=== PATIENT | male | born 1980 | race Caucasian/White ===

== ENCOUNTER 2020-08-20 02:55 | Emergency (ER) | payer OTHER ==
[~2020-08-20] VITALS: Ht 177.8 cm; Wt 72.6 kg
[~2020-08-20 02:55] MED LIST: BACTRIM DS TAB1 EACH PO; CLONAZEPAM 0.50.5 M1 PO; HYDROCODON-ACE1 EAC7 PO; KEFLEX500 M1 PO; NORCO 5-325 TA1 EACH PO; TRUVADA1 EAC1
[2020-08-20 03:17] LABS: HEMATOCRIT 43.5 % (42.0-52.0); HEMOGLOBIN 14.7 gm/dL (14.0-18.0); MCHC 33.8 g/dL (28.0-37.0); MCV 94.7 fL (80.0-100.0); MPV 7.7 fl. (7.2-11.1); RBC 4.59 mil/uL (4.50-6.00); RDW-CV 13.7 % (10.5-14.5); WBC 5.2 thou/uL (4.0-11.0)
[2020-08-20 03:26] LABS: CALCIUM 8.6 mg/dL (8.5-10.1); CREATININE 0.7 mg/dL (0.6-1.3); POTASSIUM 3.3 mmol/L (3.5-5.1)
[2020-08-20 03:31] LABS: TOTAL BILIRUBIN 0.3 mg/dL (<0.1-1.0); TOTAL PROTEIN 7.4 g/dL (6.4-8.2)
[2020-08-20 03:46] LABS: URINE BILIRUBIN NEGATIVE (Negative); URINE BLOOD NEGATIVE (Negative); URINE CLARITY CLEAR; URINE COLOR YELLOW; URINE GLUCOSE-RANDOM TRACE (Negative); URINE KETONES NEGATIVE (Negative); URINE LEUKOCYTES-REFLEX NEGATIVE (Negative); URINE NITRITE-REFLEX NEGATIVE (Negative); URINE PROTEIN NEGATIVE (Negative); URINE SPECIFIC GRAVITY <= 1.005 (1.005-1.030); URINE UROBILINOGEN 0.2 E.U./dl (0.2-1.0)
[2020-08-20 04:36] LABS: AMP/METHAMP Negative (Negative); BARBITURATES Negative (Negative); BENZODIAZEPINES Negative (Negative); COCAINE Negative (Negative); METHADONE Negative (Negative); OPIATES POSITIVE (Negative); PCP Negative (Negative); THC POSITIVE (Negative)
[2020-08-20 05:10] VITALS: BP 118/84
== END 2020-08-20 05:11 | disposition home or self-care (01) ==
LOC: M.ERS 02:55
PROVIDERS: Personal Emergency Response Attendant
DX: F11.10 Opioid abuse, uncomplicated (principal); K70.10 Alcoholic hepatitis without ascites; F10.121 Alcohol abuse with intoxication delirium; R73.9 Hyperglycemia, unspecified; F17.210 Nicotine dependence, cigarettes, uncomplicated; Z88.5 Allergy status to narcotic agent; F43.10 Post-traumatic stress disorder, unspecified; F41.9 Anxiety disorder, unspecified; Y90.9 Presence of alcohol in blood, level not specified

== ENCOUNTER 2021-03-23 11:11 | Inpatient (IN) | payer OTHER ==
[~2021-03-23] VITALS: Ht 177.8 cm; Wt 74.8 kg
--- NOTE | ~2021-03-23 | PROC ---
[address] [address] PROCEDURE REPORT Name: AJ MARTINS Room: [address] IN M.R.#: [id number] Admission: 03/23/21 Attend Phys: Trey Heredia Discharge: 03/25/21 Date of : 80 Report #: [id number] THIS REPORT FOR: cc: FAM - No family physician/PCP FAM - No family physician/PCP [facility],Medical Records Staff ~ For GI report, please see the Provation report in Perceptive 7 content. By: 0659Medical Records Staff [facility] /JIAN
[2021-03-23 11:11] VITALS: BP 137/98
[2021-03-23] MEDS ORDERED: SYMTUZA 800-151 EACH PO (11:16)
[2021-03-23] MEDS ORDERED: DOXYCYCLINE 10100 M2 PO (11:16)
[2021-03-23] MEDS ORDERED: ONDANSETRON ODT4 MG PO (11:17)
[2021-03-23 11:33] LABS: ABSOLUTE LYMPHOCYTES 0.6 thou/uL (0.8-5.3); ABSOLUTE MONOCYTES 0.4 thou/uL (0.0-1.2); BASOPHILS 0.4 %; EOSINOPHILS 0.3 %; HEMATOCRIT 42.6 % (42.0-52.0); HEMOGLOBIN 14.6 gm/dL (14.0-18.0); LYMPHOCYTES 8.8 %; MCH 33.6 pg (26.0-34.0); MCHC 34.3 g/dL (28.0-37.0); MONOCYTES 5.5 %; MPV 8.9 fl. (7.2-11.1); NUCLEATED RBCS 0 /100WBC; PLATELET COUNT* 139 thou/uL (150-400); RBC 4.35 mil/uL (4.50-6.00); RDW-CV 14.6 % (10.5-14.5); WBC 7.1 thou/uL (4.0-11.0)
[2021-03-23 11:44] LABS: CREATININE 0.8 mg/dL (0.6-1.3)
[2021-03-23 11:45] LABS: APTT 27.1 Seconds (25.0-31.3); INR 1.1; PROTIME 11.8 Seconds (9.20-11.50)
[2021-03-23 11:46] LABS: POTASSIUM 2.9 mmol/L (3.5-5.1)
[2021-03-23 11:47] LABS: ALBUMIN 2.9 g/dL (3.4-5.0); TOTAL BILIRUBIN 1.3 mg/dL (<0.1-1.0); TOTAL PROTEIN 7.7 g/dL (6.4-8.2)
--- NOTE | 2021-03-23 12:54 | EKG ---
[place] [address] ELECTROCARDIOGRAM REPORT Name: AJ MARTINS Room: [place] [address] ADM IN [facility]#: [id number] Admission: 03/23/21 Attend Phys: Rob Farrell Discharge: Date of : 80 Date of Service: 03/23/21 1227 Report #: [id number] THIS REPORT FOR: //name// [facility] ED Test Date: 2021-03-23 Test Time: 12:27:25 Pat Name: AJ MARTINS Department: Room: [facility] Gender: M Anode Builder: JIM : 1980 Requested By: Mike Carbone Order Number: [id number] MD: Chris Sexton Measurements Intervals [place] Rate: 88 P: 38 [place]: 136 QRS: 17 QRSD: 91 T: 33 QT: 376 QTc: 455 Interpretive Statements Sinus rhythm No previous ECG available for comparison Electronically Signed On 03-23-2021 12:54:18 CDT by Chris Sexton [email or web address] <ELECTRONICALLY SIGNED> By: Chris Sexton MD, [facility] 03/23/21 1254 1227 1227 Chris Sexton MD, [facility] /EPI
[2021-03-23 13:14] LABS: URINE BLOOD NEGATIVE (Negative); URINE CLARITY CLEAR; URINE COLOR ORANGE; URINE GLUCOSE-RANDOM TRACE (Negative); URINE KETONES 1+ (Negative); URINE LEUKOCYTES-REFLEX NEGATIVE (Negative); URINE PROTEIN 1+ (Negative)
[2021-03-23 13:16] LABS: URINE BILIRUBIN 3+ (Negative); URINE NITRITE-REFLEX POSITIVE (Negative)
[2021-03-23 13:18] LABS: ICTOTEST (BILI CONFIRMATORY) Negative (Negative)
[2021-03-23 13:25] LABS: BACTERIA-REFLEX 1-9 Few /HPF (None Seen); CASTS None Seen /LPF (None Seen); CRYSTALS None Seen /LPF (None Seen); MUCUS >6 Heavy strn/LPF (None Seen); SQUAMOUS 0-3 Few /LPF (0-3); URINE RBC None Seen /HPF (0-2); URINE WBC-REFLEX 0-5 Rare /HPF (0-5)
[2021-03-23 13:50] VITALS: BP 109/73
[2021-03-23 14:30] VITALS: BP 102/73
--- NOTE | 2021-03-23 18:39 | NUR ---
[facility] AT 1415. PT IS ALERT AND ORIENTED. PT CAME FROM ED. ASSESSMENT DONE AND CHARTED. PT HAD BANANA BAG STARTED IN THE ED AND FINISH HERE. PT IS CURRENTLY ON D5 0.9NS WITH 20MEQ INFUSING AT 100ML/HR. PT HAD PANTOPROZOLE STRIP THAT WAS STARTED IN THE ED AND FINISH HERE. A PAGE IS SEND OUT TO DR. TURCIOS TO CONTINUE PANTOPROZOLE STRIP, NO CALL BACK YET. WILL CONTINUE TO AWAIT THE CALL BACK FROM DR. TURCIOS. AND CONTINUE TO PROVIDE CARE FOR PATIENT.
[2021-03-23 20:00] VITALS: BP 106/74
[2021-03-24 00:30] VITALS: BP 128/84
[2021-03-24 04:21] LABS: ABSOLUTE LYMPHOCYTES 0.5 thou/uL (0.8-5.3); ABSOLUTE MONOCYTES 0.3 thou/uL (0.0-1.2); ABSOLUTE NEUTROPHILS 2.7 thou/uL (1.6-8.1); BASOPHILS 0.5 %; EOSINOPHILS 0.3 %; HEMATOCRIT 39.9 % (42.0-52.0); HEMOGLOBIN 13.3 gm/dL (14.0-18.0); LYMPHOCYTES 14.2 %; MCH 32.6 pg (26.0-34.0); MCHC 33.2 g/dL (28.0-37.0); MCV 98.1 fL (80.0-100.0); MONOCYTES 7.8 %; MPV 9.7 fl. (7.2-11.1); NUCLEATED RBCS 0 /100WBC; PLATELET COUNT* 102 thou/uL (150-400); POLYS 77.2 %; RBC 4.07 mil/uL (4.50-6.00); RDW-CV 14.4 % (10.5-14.5); WBC 3.5 thou/uL (4.0-11.0)
[2021-03-24 04:37] VITALS: BP 116/69
[2021-03-24 04:43] LABS: ALBUMIN 2.5 g/dL (3.4-5.0); CALCIUM 7.3 mg/dL (8.5-10.1); CREATININE 0.7 mg/dL (0.6-1.3); POTASSIUM 3.5 mmol/L (3.5-5.1); TOTAL BILIRUBIN 1.4 mg/dL (<0.1-1.0); TOTAL PROTEIN 6.5 g/dL (6.4-8.2)
--- NOTE | 2021-03-24 05:58 | NUR ---
PT ALERT ORIENTED. ETOH WD. CLONAZIPAM AND ATIVAN GIVEN ONCE EACH. PT NPO AT NM FOR EGD. PAIN MEDICATION CHG TO IVP.
[2021-03-24 08:00] VITALS: BP 124/76
[2021-03-24 12:00] VITALS: BP 140/71
[2021-03-24 17:46] VITALS: BP 133/69
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
--- NOTE | 2021-03-24 19:50 | NUR ---
ASSUMED PT CARE AT 0730. PT IS A&OX4. PT SLEEPING OFTEN BUT RESPONDS READILY WHEN SPOKEN TO. ASSESSMENT COMPLETED. MEDICATIONS ADMINISTERED ORDERED. PT HAD EGD TODAY.PRN ANXIETY MED AND PAIN MED ADMINISTERED AND EFFECTIVE.
[2021-03-24 20:00] VITALS: BP 116/77
[2021-03-25 00:40] VITALS: BP 152/72
[2021-03-25 05:45] VITALS: BP 148/72
--- NOTE | 2021-03-25 07:19 | NUR ---
ASSUMED PT CARE AT APPROX 1930. PT IS AWAKE AND ORIENTED X4. PT IS NOT IN DISTRESS, NO DESATURATIONS NOTED ON ROOM AIR. PT IS ANXIOUS AT TIMES, ANXIETY MEDS GIVEN WITH RELIEF. PT IS C/O BACK AMD NECK PAIN RELEIVED BY PAIN MEDS GIVEN PER MAR. NO ACUTE CHANGES THIS SHIFT. CALL LIGHT WITHIN REACH. HOURLY ROUNDING DONE FOR PT SAFETY HIGH FALL PREFCAUTIONS IN PLACE.
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
[2021-03-25] MEDS ORDERED: PROTONIX40 M2 PO (10:56)
[2021-03-25 11:35] VITALS: BP 148/72
[2021-03-26 07:08] LABS: HEPATITIS B SURFACE AG Negative (Negative)
== END 2021-03-25 13:22 | disposition home or self-care (01) | DRG 368 ==
LOC: M.ERS 11:11 → M.TBA-ER 11:52 → M.2W 11:52
PROVIDERS: Family Medicine; Internal Medicine Gastroenterology; ADMIT Internal Medicine; ATTEND Internal Medicine
PROC: 0DJ08ZZ Inspection of Upper Intestinal Tract, Via Natural or Artificial Opening Endoscopic (ICD-10-PCS; principal; 2021-03-24)
DX: K21.01 Gastro-esophageal reflux disease with esophagitis, with bleeding (principal); J69.0 Pneumonitis due to inhalation of food and vomit; F10.139 Alcohol abuse with withdrawal, unspecified; E87.3 Alkalosis; K76.6 Portal hypertension; F41.9 Anxiety disorder, unspecified; E87.6 Hypokalemia; F43.10 Post-traumatic stress disorder, unspecified; D69.6 Thrombocytopenia, unspecified; D72.819 Decreased white blood cell count, unspecified; F17.210 Nicotine dependence, cigarettes, uncomplicated; E87.8 Other disorders of electrolyte and fluid balance, not elsewhere classified; M48.00 Spinal stenosis, site unspecified; M19.90 Unspecified osteoarthritis, unspecified site; K31.89 Other diseases of stomach and duodenum; Z20.822 Contact with and (suspected) exposure to COVID-19; K44.9 Diaphragmatic hernia without obstruction or gangrene; Z88.6 Allergy status to analgesic agent; Z71.41 Alcohol abuse counseling and surveillance of alcoholic

== ENCOUNTER 2021-06-05 16:33 | Inpatient (IN) | payer OTHER ==
[~2021-06-05] VITALS: Ht 177.8 cm; Wt 84.5 kg
[~2021-06-05 16:33] MED LIST changes: +DOXYCYCLINE 10100 M2 PO; +ONDANSETRON ODT4 MG PO; +PROTONIX40 M2 PO; +SYMTUZA 800-151 EACH PO
[2021-06-05 16:44] VITALS: BP 135/84
[2021-06-05 17:11] LABS: HEMATOCRIT 37.4 % (42.0-52.0); HEMOGLOBIN 13.1 gm/dL (14.0-18.0); MCH 34.4 pg (26.0-34.0); MCHC 34.9 g/dL (28.0-37.0); MCV 98.4 fL (80.0-100.0); MPV 9.7 fl. (7.2-11.1); NUCLEATED RBCS 0 /100WBC; PLATELET COUNT* 179 thou/uL (150-400); RDW-CV 17.4 % (10.5-14.5)
[2021-06-05 17:24] LABS: INR 1.6; PROTIME 16.5 Seconds (9.20-11.50)
[2021-06-05 17:25] LABS: CALCIUM 8.5 mg/dL (8.5-10.1); CREATININE 9.7 mg/dL (0.6-1.3); POTASSIUM 3.6 mmol/L (3.5-5.1)
[2021-06-05 17:38] LABS: ALBUMIN 1.8 g/dL (3.4-5.0); TOTAL BILIRUBIN 26.9 mg/dL (<0.1-1.0); TOTAL PROTEIN 7.6 g/dL (6.4-8.2)
[2021-06-05 18:11] LABS: ABSOLUTE EOSINOPHILS 0.2 thou/uL (0.0-0.7); ABSOLUTE LYMPHOCYTES 1.2 thou/uL (0.8-5.3); ABSOLUTE MONOCYTES 1.5 thou/uL (0.0-1.2); ABSOLUTE NEUTROPHILS 14.1 thou/uL (1.6-8.1); HYPOCHROMASIA 1+; MACROCYTES 1+; PLATELET ESTIMATE ADEQUATE
[2021-06-05 18:12] LABS: LARGE PLATELETS OCCASIONAL
[2021-06-05 22:10] VITALS: BP 134/78
[2021-06-05 23:52] LABS: URINE BLOOD NEGATIVE (Negative); URINE CLARITY CLEAR; URINE COLOR BROWN; URINE GLUCOSE-RANDOM TRACE (Negative); URINE KETONES TRACE (Negative); URINE LEUKOCYTES-REFLEX NEGATIVE (Negative); URINE PROTEIN TRACE (Negative); URINE UROBILINOGEN >= 8.0 E.U./dl (0.2-1.0)
[2021-06-05 23:58] LABS: URINE BILIRUBIN 3+ (Negative); URINE NITRITE-REFLEX POSITIVE (Negative)
[2021-06-06] VITALS (7 sets, daily range): BP systolic 118–137; BP diastolic 77–95
[2021-06-06 00:18] LABS: AMORPHOUS URATES Moderate /LPF (None Seen); BACTERIA-REFLEX >30 Many /HPF (None Seen); CELLULAR CASTS 0-3 Few /LPF (None Seen); COARSE GRANULAR CASTS 0-3 Few /LPF (None Seen); FINE GRANULAR CASTS 0-3 Few /LPF (None Seen); MUCUS 4-6 Moderate strn/LPF (None Seen); SQUAMOUS 4-10 Moderate /LPF (0-3); TRANSITIONAL EPITHEL CELL 0-3 Few /LPF (None Seen); URINE RBC 3-10 Few /HPF (0-2); URINE WBC-REFLEX 6-15 Few /HPF (0-5)
[2021-06-06 08:13] LABS: CALCIUM 7.9 mg/dL (8.5-10.1); POTASSIUM 3.6 mmol/L (3.5-5.1)
[2021-06-06 08:18] LABS: ALBUMIN 1.5 g/dL (3.4-5.0); TOTAL BILIRUBIN 22.6 mg/dL (<0.1-1.0); TOTAL PROTEIN 6.5 g/dL (6.4-8.2)
[2021-06-06 11:39] LABS: BF RBC <1000 /mm3; TOTAL CELL COUNT 50 /mm3
--- NOTE | 2021-06-06 12:20 | EKG ---
[place] [address] ELECTROCARDIOGRAM REPORT Name: LAKSHMIAJ Room: [place] [address] ADM IN [facility]#: [id number] Admission: 06/05/21 Attend Phys: Rob Farrell Discharge: Date of : 80 Date of Service: 06/05/21 1728 Report #: [id number] THIS REPORT FOR: //name// [facility] ED Test Date: 2021-06-05 Test Time: 17:28:51 Pat Name: AJ MARTINS Department: Room: [facility] Gender: M Residence Life Director: JOANNE : 1980 Requested By: Mike Carbone Order Number: [id number] MD: Chris Sexton Measurements Intervals [place] Rate: 91 P: 44 VT: 156 QRS: 1 QRSD: 95 T: 30 QT: 384 QTc: 473 Interpretive Statements Sinus rhythm with premature ventricular contractions Compared to ECG 03/23/2021 12:27:25 Ventricular premature complex(es) now present Electronically Signed On 06-06-2021 12:20:28 CATERING COOK by Chris Sexton [email or web address] <ELECTRONICALLY SIGNED> By: Chris Sexton MD, FACC 06/06/21 1220 1728 1728 Chris Sexton MD, FAC /EPI
[2021-06-06 12:24] LABS: TOTAL VOLUME 7250 ml
[2021-06-06 13:46] LABS: BF POLYS 47 %
[2021-06-06 13:52] LABS: BF LYMPHOCYTES 0 %; BF MONOCYTES 0 %
[2021-06-06 13:53] LABS: CLARITY CLEAR; SOURCE PARACENTESIS
--- NOTE | 2021-06-06 16:02 | CON ---
[address] [address] CONSULTATION Name: AJ MARTINS Room: [address] IN M.R.#: [id number] Admission: 06/05/21 Attend Phys: Trey Heredia Discharge: Date of : 80 Report #: [id number] THIS REPORT FOR: cc: [facility] - Clinic physician unknown [facility] - Clinic physician unknown Washington Conley MD ~ DATE OF CONSULTATION: 06/06/2021 Please note at the time of this dictation, the patient was seen and physically examined by myself. REASON FOR CONSULTATION: Jaundice, severe ascites and cirrhosis. HISTORY OF PRESENT ILLNESS: This is a 40-year-old male who has a longstanding history of alcohol abuse. The patient was last seen in March of this year in which he had been drinking a 6-pack daily. He states since his dismissal, he has only had one 6-pack that was once and that was about 6 weeks ago. He has not been able to get into any rehabilitation as of yet. The patient states that he denies any difficulty swallowing. He has had some nausea over the last couple of days. He states over the last couple of weeks, his is abdomen has gradually been getting bigger and bigger to the point that the last two days, he has not really had an appetite. He states his bowels are moving. He denies any bright red blood or any black in his stools. He does state that he has been using ibuprofen at home at least 800 mg every day and as mentioned earlier, he has been eating and drinking up until the last few days prior to him being admitted. The patient states he did not notice how yellow he was until he came to the hospital. The patient was last seen by us on 03/24 in which he underwent an EGD that showed grade D esophagitis. He had a 2 cm hiatal hernia, portal hypertensive gastropathy. At that particular time, his weight was 165 pounds and upon admission this time, his weight is 180 and he is up 15 pounds. He has no peripheral swelling noted at this time. On admission, his bilirubin was noted to be 27, in some acute kidney injury as well. ALLERGIES: MORPHINE. MEDICATIONS FROM HOME: He has been taking his clonazepam, ibuprofen 800 daily, hydrocodone/acetaminophen, Symtuza and ondansetron. PAST MEDICAL HISTORY: HIV and on HAART therapy, alcohol dependency in the past, history of cirrhosis, history of alcoholic hepatitis in the past, anxiety, PTSD and opioid use. PAST SURGICAL HISTORY: None. FAMILY HISTORY: Negative for [place] [address] CONSULTATION Name: AJ MARTINS Room: [address] IN [facility]#: [id number] Admission: 06/05/21 Attend Phys: Trey Heredia Discharge: Date of : 80 Report #: [id number] SOCIAL HISTORY: He smokes marijuana regularly, smokes on a daily basis. Last reports a 6-pack of alcohol 6 weeks ago. REVIEW OF SYSTEMS: Twelve-point review of systems is essentially negative except what is mentioned in the HPI. PHYSICAL EXAMINATION: VITAL SIGNS: Temperature 36.3, pulse 91, respirations are 23, blood pressure 136/95. HEART: Regular rate and rhythm. LUNGS: Diminished, but clear. ABDOMEN: Very distended and firm. Positive bowel sounds. No peripheral edema noted. SKIN: The patient is very jaundiced. Eyes icterus. LABORATORY DATA: Sodium 127, potassium 3.6. BUN is 129, creatinine is 9. GFR is 7. His total bilirubin on admission was 26.9, he is 22.6, alkaline phosphatase is 110, ALT is 75, AST is 107. Albumin 1.5, total protein 6.5. PT is 16.5, INR is 1.6. His lipase is 94. Hemoglobin is 13.1, white count is 17 and platelets are 179. The patient currently is a Child-Omer C with a score of 11. Discriminant function of 43 and a MELD of 37. IMAGING: His CT shows fatty liver with severe ascites. Spleen is very prominent, questionable possible diffuse colonic thickening and gallstones have been noted. IMPRESSION: 1. Jaundice/alcoholic hepatitis. 2. Ascites, severe. 3. Cirrhosis secondary to alcohol abuse history and fatty liver. 4. NSAID use daily, ibuprofen 800. 5. Leukocytosis. 6. Hyponatremia. 7. Acute renal failure. 8. Human immunodeficiency virus. PLAN: 1. Ultrasound paracentesis to replace 2 grams of albumin, if greater than 5 liters is removed. 2. Labs on the paracentesis fluid, ascitic fluid, cell count, SKIAGRAPHER, total protein and albumin. 3. Labs, AFP, CBC, CMP, PT/INR in the a.m. 4[place] [address] CONSULTATION Name: AJ MARTINS Room: [place] [address] ADM IN .R.#: [id number] Admission: 06/05/21 Attend Phys: Trey Heredia Discharge: Date of : 80 Report #: [id number] 5. Timing of the EGD to be determined for rechecking of his grade D esophagitis from March. 6. Prednisolone 40 mg daily for the next 28 days and then we will start a taper. 7. Further recommendations to be made after all of the above has been noted. Thank you for allowing us to participate in this patient's care. Please do not hesitate to call with any questions regarding this consult. <ELECTRONICALLY SIGNED> By: Washington Conley MD 06/06/21 1602 0900 0940Washington Conley MD /nt
[2021-06-07 01:00] VITALS: BP 130/76
[2021-06-07 05:27] VITALS: BP 126/74
[2021-06-07] MEDS ORDERED: RAYOS5 MG PO (06:37)
[2021-06-07 08:00] VITALS: BP 132/73
[2021-06-07 08:56] LABS: HEMATOCRIT 31.4 % (42.0-52.0); MCHC 34.5 g/dL (28.0-37.0); MCV 98.6 fL (80.0-100.0); MPV 9.2 fl. (7.2-11.1); RBC 3.19 mil/uL (4.50-6.00); RDW-CV 17.5 % (10.5-14.5); WBC 14.3 thou/uL (4.0-11.0)
[2021-06-07 09:02] LABS: HEMOGLOBIN 10.8 gm/dL (14.0-18.0)
[2021-06-07 09:15] LABS: ALBUMIN 2.1 g/dL (3.4-5.0); CALCIUM 8.4 mg/dL (8.5-10.1); CREATININE 8.2 mg/dL (0.6-1.3); MAGNESIUM 2.1 mg/dL (1.8-2.4); POTASSIUM 3.5 mmol/L (3.5-5.1); TOTAL BILIRUBIN 23.2 mg/dL (<0.1-1.0); TOTAL PROTEIN 6.1 g/dL (6.4-8.2)
[2021-06-07 10:28] LABS: INR 1.6
[2021-06-07 12:09] VITALS: BP 114/73
[2021-06-07 20:00] VITALS: BP 118/86
[2021-06-08] VITALS: BP 122/80
[2021-06-08 05:27] VITALS: BP 128/79
[2021-06-08 07:35] LABS: ABSOLUTE LYMPHOCYTES 0.3 thou/uL (0.8-5.3); ABSOLUTE MONOCYTES 0.2 thou/uL (0.0-1.2); ABSOLUTE NEUTROPHILS 9.8 thou/uL (1.6-8.1); BASOPHILS 0.1 %; HEMATOCRIT 31.8 % (42.0-52.0); LYMPHOCYTES 2.5 %; MCH 34.3 pg (26.0-34.0); MCHC 34.5 g/dL (28.0-37.0); MCV 99.5 fL (80.0-100.0); MPV 9.1 fl. (7.2-11.1); NUCLEATED RBCS 0 /100WBC; PLATELET COUNT* 117 thou/uL (150-400); POLYS 95.4 %; RDW-CV 16.8 % (10.5-14.5); WBC 10.3 thou/uL (4.0-11.0)
[2021-06-08 07:44] LABS: CALCIUM 8.7 mg/dL (8.5-10.1); CREATININE 7.5 mg/dL (0.6-1.3); PHOSPHORUS* 6.2 mg/dL (2.5-4.9); POTASSIUM 3.6 mmol/L (3.5-5.1)
[2021-06-08 07:45] LABS: INR 1.7; PROTIME 16.7 Seconds (9.20-11.50)
[2021-06-08 07:59] LABS: CALCIUM 8.5 mg/dL (8.5-10.1); CREATININE 7.5 mg/dL (0.6-1.3); POTASSIUM 3.6 mmol/L (3.5-5.1); TOTAL BILIRUBIN 20.9 mg/dL (<0.1-1.0); TOTAL PROTEIN 5.9 g/dL (6.4-8.2)
[2021-06-08 08:00] VITALS: BP 121/85
[2021-06-08 13:41] VITALS: BP 126/88
[2021-06-08 17:26] VITALS: BP 147/87
[2021-06-08 20:00] VITALS: BP 139/89
[2021-06-09] VITALS: BP 139/93
[2021-06-09 04:00] VITALS: BP 126/84
--- NOTE | 2021-06-09 07:31 | CON ---
[address] [address] CONSULTATION Name: LAKSHMIAJ Room: [address] IN M.R.#: [id number] Admission: 06/05/21 Attend Phys: Trey Heredia Discharge: Date of : 80 Report #: [id number] THIS REPORT FOR: cc: [facility] - Clinic physician unknown [facility] - Clinic physician unknown Nohemi Martínez MD ~ DATE OF CONSULTATION: 06/06/2021 CONSULTING PHYSICIAN: Dr. Farrell. REASON FOR NEPHROLOGY CONSULTATION: Acute kidney injury. REASON FOR ADMISSION: Abdominal pain. HISTORY OF PRESENT ILLNESS: This is a 40-year-old male with history of alcohol dependence in the past. No recent use at least in the last 6 months, HIV, is on HAART therapy, history of cirrhosis with history of hepatitis in the past, came in with increasing abdominal pain as well as abdominal distention as well as jaundice. He was found to have a creatinine of 9.7. His baseline was 0.7 back on 03/24 of this year. His abdomen is also extremely distended and there is a large amount of ascites on his abdominal imaging. With IV fluids, his creatinine has come down to 9.0, but he is really uncomfortable with his abdominal distention. He does use ibuprofen at home. He reports using 500 mg every day. He reports eating and drinking okay in the last few days, but has been having a lot of nausea. He states for the last couple of weeks, his abdomen has been distended. No history of any kidney stones, no history of any previous kidney problems. There is no evidence of any hydronephrosis on abdominal imaging. He also has marked hyperbilirubinemia with transaminitis. His total bilirubin is 27. ALLERGIES: MORPHINE. REVIEW OF SYSTEMS: Which is as mentioned in history of present illness and otherwise 10-point review of systems are negative. PAST MEDICAL HISTORY: Includes HIV, on HAART therapy, alcohol dependence in the past, has not used it in the last 6 months, uses marijuana, history of cirrhosis, history of hepatitis in the past, anxiety, PTSD, opiate use. PAST SURGICAL HISTORY: He does not report any. FAMILY HISTORY: No history of any kidney disease in the past. SOCIAL HISTORY: He does smoke every day. Uses marijuana. [place] [address] CONSULTATION Name: AJ MARTINS Room: [address]#: [id number] Admission: 06/05/21 Attend Phys: Trey Heredia Discharge: Date of : 80 Report #: [id number] HOME MEDICATIONS: Clonazepam, ibuprofen one tablet a day, hydrocodone/acetaminophen, Symtuza and ondansetron. PHYSICAL EXAMINATION: VITAL SIGNS: Blood pressure is 136/95. He is afebrile, pulse rate 91, respiratory rate 23, and pulse ox is 94% on room air. GENERAL: The patient is awake and alert and oriented x3, looks like he is in mild distress because of abdominal discomfort. HEAD AND EYES: Atraumatic, normocephalic. Conjunctivae has jaundice. Skin is also jaundiced. Mucous membranes are dry. NECK: No JVD. CHEST: Bilaterally clear to auscultation posteriorly. No crackles or wheezing. CARDIOVASCULAR: S1, S2 normal. No murmurs. ABDOMEN: Mildly distended, tight and bowel sounds are decreased, nontender. LOWER EXTREMITIES: There is no lower extremity edema. NEUROLOGIC: Neurologic function is grossly intact. PSYCHIATRIC: Mood and affect seem to be normal. LABORATORY DATA: WBC 17.0, hemoglobin 13.1, platelet count is 179. Sodium is 127 this morning, potassium is 3.8, chloride is 86, BUN is 129, creatinine is 9.0 which is better from 9.7 when he first came in. Total bilirubin is 27. Other labs are reviewed. IMAGING: Abdominal pelvic CT scan was reviewed. ASSESSMENT: 1. Acute kidney injury, presents with a creatinine of 9.7 with a baseline creatinine of 0.7 in March of this year. Acute kidney injury in setting of volume depletion, use of NSAID use. He also has marked hyperbilirubinemia. Bilirubin cast nephropathy cannot be ruled out, hepatorenal syndrome also remains a possibility. He also takes tenofovir as part of his HAART regimen, which has been associated with acute tubular necrosis. So far, labs are getting better with fluids. UA reviewed, shows evidence of some granular cast, is a contaminated specimen. 3-10 RBCs per high power field with trace protein. Renal ultrasound does not show any hydronephrosis. Another possibility is of renal venous congestion because of increased intraabdominal pressure. 2. Marked ascites in the setting of known cirrhosis, history of alcohol use in the past. 3. Marked hyperbilirubinemia, transaminitis. We will defer to primary team and GI also has been consulted. 4. Non-gap metabolic acidosis with metabolic alkalosis. 5. Hyponatremia in the setting of volume depletion and impaired renal function. 6. Marijuana use. [address] [address] CONSULTATION Name: AJ MARTINS Room: [address] IN [facility]#: [id number] Admission: 06/05/21 Attend Phys: Trey Heredia Discharge: Date of : 80 Report #: [id number] 7. Leukocytosis, etiology of infection not clear. 8. Post traumatic stress disorder as per primary team. 9. History of human immunodeficiency virus, on HAART regimen, currently on hold because of renal dysfunction. 10. Bowel wall thickening, will defer to GI. PLAN: 1. From nephrology standpoint, continue IV fluids. We will do normal saline at 100 mL an hour, follow sodium closely. 2. So far, kidney function is getting better with fluids. There is no need for dialysis. 3. I would recommend planning for paracentesis if more than 5 liters removed, use IV albumin. 4. Strict I's and O's. 5. Follow up with GI recommendations. 6. Avoid nephrotoxic agents, NSAIDs, avoid IV contrast, try to keep his MAP around 65-70. 7. Agree with holding off on HAART therapy right now. Thank you for this consultation. We will continue to follow with you. Discussed with the patient and nurse in detail. <ELECTRONICALLY SIGNED> By: Nohemi Martínez MD 06/09/21 0731 0801 [id number] Martínez MD /nt
[2021-06-09 08:09] LABS: HEMATOCRIT 33.3 % (42.0-52.0); HEMOGLOBIN 11.5 gm/dL (14.0-18.0); MCH 34.1 pg (26.0-34.0); MCHC 34.5 g/dL (28.0-37.0); MCV 98.9 fL (80.0-100.0); MPV 9.6 fl. (7.2-11.1); NUCLEATED RBCS 0 /100WBC; PLATELET COUNT* 138 thou/uL (150-400); RBC 3.37 mil/uL (4.50-6.00); WBC 17.7 thou/uL (4.0-11.0)
[2021-06-09 08:23] LABS: CALCIUM 8.4 mg/dL (8.5-10.1); POTASSIUM 3.4 mmol/L (3.5-5.1); TOTAL PROTEIN 6.1 g/dL (6.4-8.2)
[2021-06-09 08:24] LABS: CREATININE 6.5 mg/dL (0.6-1.3)
[2021-06-09 08:32] VITALS: BP 135/94
[2021-06-09 09:27] LABS: ABSOLUTE LYMPHOCYTES 0.7 thou/uL (0.8-5.3); ABSOLUTE MONOCYTES 0.5 thou/uL (0.0-1.2); ABSOLUTE NEUTROPHILS 16.5 thou/uL (1.6-8.1); PLATELET ESTIMATE ADEQUATE
[2021-06-09 12:00] VITALS: BP 141/86
[2021-06-09 15:57] VITALS: BP 122/90
[2021-06-09 19:50] VITALS: BP 138/84
[2021-06-10] VITALS: BP 133/91
[2021-06-10 04:00] VITALS: BP 150/79
[2021-06-10 05:30] LABS: INR 1.6; PROTIME 15.9 Seconds (9.20-11.50)
[2021-06-10 05:35] LABS: CALCIUM 8.3 mg/dL (8.5-10.1); CREATININE 6.5 mg/dL (0.6-1.3); POTASSIUM 3.4 mmol/L (3.5-5.1); TOTAL BILIRUBIN 14.3 mg/dL (<0.1-1.0); TOTAL PROTEIN 6.2 g/dL (6.4-8.2)
[2021-06-10 07:08] LABS: ANISOCYTOSIS 1+; GIANT PLATELETS FEW; PLATELET ESTIMATE ADEQUATE
[2021-06-10 07:34] LABS: ABSOLUTE EOSINOPHILS 0.1 thou/uL (0.0-0.7); BASOPHILS 0.1 %; HEMATOCRIT 33.3 % (42.0-52.0); HEMOGLOBIN 11.2 gm/dL (14.0-18.0); MCH 33.8 pg (26.0-34.0); MCHC 33.6 g/dL (28.0-37.0); MCV 100.7 fL (80.0-100.0); MPV 9.5 fl. (7.2-11.1); NUCLEATED RBCS 0 /100WBC; PLATELET COUNT* 128 thou/uL (150-400); RBC 3.31 mil/uL (4.50-6.00); RDW-CV 17.6 % (10.5-14.5); WBC 16.6 thou/uL (4.0-11.0)
[2021-06-10 07:38] LABS: ABSOLUTE LYMPHOCYTES 0.6 thou/uL (0.8-5.3); ABSOLUTE MONOCYTES 1.1 thou/uL (0.0-1.2); ABSOLUTE NEUTROPHILS 14.8 thou/uL (1.6-8.1)
[2021-06-10 08:00] VITALS: BP 127/91
[2021-06-10 09:07] LABS: BODY FLUID PROTEIN 0.7 g/dL (())
[2021-06-10 12:30] VITALS: BP 125/92
[2021-06-10 16:00] VITALS: BP 119/80
[2021-06-10 21:20] VITALS: BP 130/89
[2021-06-11] VITALS: BP 117/68
[2021-06-11 04:00] VITALS: BP 160/76
[2021-06-11 04:32] LABS: ALBUMIN 1.9 g/dL (3.4-5.0); CALCIUM 8.2 mg/dL (8.5-10.1); CREATININE 5.6 mg/dL (0.6-1.3); POTASSIUM 3.8 mmol/L (3.5-5.1); TOTAL BILIRUBIN 12.5 mg/dL (<0.1-1.0)
[2021-06-11 08:00] VITALS: BP 136/73
[2021-06-11 11:38] VITALS: BP 123/75
[2021-06-11 16:00] VITALS: BP 120/75
[2021-06-11 19:55] VITALS: BP 121/83
[2021-06-12 00:43] VITALS: BP 124/87
[2021-06-12 03:48] VITALS: BP 125/69
[2021-06-12 05:03] LABS: ABSOLUTE BASOPHILS 0.1 thou/uL (0.0-0.2); ABSOLUTE LYMPHOCYTES 0.4 thou/uL (0.8-5.3); ABSOLUTE MONOCYTES 0.7 thou/uL (0.0-1.2); ABSOLUTE NEUTROPHILS 13.7 thou/uL (1.6-8.1); BASOPHILS 0.5 %; EOSINOPHILS 0.1 %; HEMOGLOBIN 10.5 gm/dL (14.0-18.0); LYMPHOCYTES 2.7 %; MCH 34.5 pg (26.0-34.0); MCHC 34.9 g/dL (28.0-37.0); MCV 99.1 fL (80.0-100.0); MONOCYTES 4.6 %; MPV 9.9 fl. (7.2-11.1); NUCLEATED RBCS 0 /100WBC; PLATELET COUNT* 96 thou/uL (150-400); POLYS 92.1 %; RBC 3.03 mil/uL (4.50-6.00); WBC 14.9 thou/uL (4.0-11.0)
[2021-06-12 05:51] LABS: ALKALINE PHOSPHATASE 101 U/L (46-116); ANION GAP 13 mmol/L (7-16); CALCIUM 8.2 mg/dL (8.5-10.1); CHLORIDE 98 mmol/L (98-107); POTASSIUM 3.7 mmol/L (3.5-5.1); SGOT 69 U/L (15-37); SODIUM 129 mmol/L (136-145); TOTAL PROTEIN 5.8 g/dL (6.4-8.2)
[2021-06-12 05:53] LABS: ALBUMIN 1.9 g/dL (3.4-5.0); BUN 127 mg/dL (7-18); CO2 18 mmol/L (21-32); CREATININE 5.1 mg/dL (0.6-1.3); GLUCOSE 128 mg/dL (70-99)
[2021-06-12 05:58] LABS: SGPT < 5 U/L (30-65)
[2021-06-12 06:27] LABS: INR 1.5
[2021-06-12 08:00] VITALS: BP 110/78
[2021-06-12] MEDS ORDERED: ANTACID650 MG PO (12:03)
[2021-06-12] MEDS ORDERED: ORAPRED15 MG/5 ML PO (12:03)
[2021-06-12 12:08] VITALS: BP 117/67
[2021-06-12 13:54] VITALS: BP 117/67
[2021-06-12 16:27] VITALS: BP 129/85
== END 2021-06-12 17:27 | disposition home or self-care (01) | DRG 872 ==
LOC: M.ERS 16:33 → M.TBA-ER 18:10 → M.2W 18:10 → M.TBA-ER 06-06 00:23 → M.2W 06-06 20:04
PROVIDERS: Family Medicine; Internal Medicine; Internal Medicine Gastroenterology; Internal Medicine Nephrology; Nurse Practitioner Adult Health; ADMIT Internal Medicine; ATTEND Internal Medicine
PROC: 0W9G3ZZ Drainage of Peritoneal Cavity, Percutaneous Approach (ICD-10-PCS; 2021-06-07)
PROC: 0W9G3ZZ Drainage of Peritoneal Cavity, Percutaneous Approach (ICD-10-PCS; principal; 2021-06-10)
DX: A41.9 Sepsis, unspecified organism (principal); N17.9 Acute kidney failure, unspecified; N39.0 Urinary tract infection, site not specified; E87.1 Hypo-osmolality and hyponatremia; K74.60 Unspecified cirrhosis of liver; F41.9 Anxiety disorder, unspecified; F43.10 Post-traumatic stress disorder, unspecified; Z21 Asymptomatic human immunodeficiency virus [HIV] infection status; Z20.822 Contact with and (suspected) exposure to COVID-19; Z88.8 Allergy status to other drugs, medicaments and biological substances

== ENCOUNTER 2021-06-24 16:45 | Inpatient (IN) | payer OTHER ==
[~2021-06-24] VITALS: Ht 177.8 cm; Wt 83.0 kg
[~2021-06-24 16:45] MED LIST changes: +ANTACID650 MG PO; +ORAPRED15 MG/5 ML PO; +RAYOS5 MG PO
[2021-06-24 16:57] VITALS: BP 133/79
[2021-06-24 17:23] LABS: URINE BLOOD NEGATIVE (Negative); URINE CLARITY CLEAR; URINE COLOR YELLOW; URINE GLUCOSE-RANDOM NEGATIVE (Negative); URINE KETONES NEGATIVE (Negative); URINE LEUKOCYTES NEGATIVE (Negative); URINE NITRITE NEGATIVE (Negative); URINE PROTEIN NEGATIVE (Negative)
[2021-06-24 17:25] LABS: URINE BILIRUBIN 1+ (Negative)
[2021-06-24 17:26] LABS: ICTOTEST (BILI CONFIRMATORY) Negative (Negative)
[2021-06-24 18:28] LABS: HEMATOCRIT 32.9 % (42.0-52.0); HEMOGLOBIN 11.2 gm/dL (14.0-18.0); MCH 34.9 pg (26.0-34.0); MCHC 34.2 g/dL (28.0-37.0); MCV 102.2 fL (80.0-100.0); NUCLEATED RBCS 0 /100WBC; PLATELET COUNT* 83 thou/uL (150-400); RBC 3.22 mil/uL (4.50-6.00); RDW-CV 15.9 % (10.5-14.5); WBC 10.2 thou/uL (4.0-11.0)
[2021-06-24 18:30] LABS: POTASSIUM 3.6 mmol/L (3.5-5.1)
[2021-06-24 18:40] LABS: ALBUMIN 2.1 g/dL (3.4-5.0); TOTAL BILIRUBIN 6.4 mg/dL (<0.1-1.0); TOTAL PROTEIN 6.7 g/dL (6.4-8.2)
[2021-06-24 19:21] LABS: ABSOLUTE LYMPHOCYTES 0.3 thou/uL (0.8-5.3); ABSOLUTE MONOCYTES 0.4 thou/uL (0.0-1.2); ABSOLUTE NEUTROPHILS 9.5 thou/uL (1.6-8.1); PLATELET ESTIMATE DECREASED
[2021-06-24 19:41] LABS: AMP/METHAMP Negative (Negative); BARBITURATES Negative (Negative); BENZODIAZEPINES Negative (Negative); COCAINE Negative (Negative); METHADONE Negative (Negative); OPIATES Negative (Negative); PCP Negative (Negative); THC POSITIVE (Negative)
[2021-06-25 02:30] VITALS: BP 133/85
[2021-06-25 08:37] LABS: ABSOLUTE LYMPHOCYTES 0.4 thou/uL (0.8-5.3); ABSOLUTE MONOCYTES 0.7 thou/uL (0.0-1.2); ABSOLUTE NEUTROPHILS 7.1 thou/uL (1.6-8.1); BASOPHILS 0.4 %; EOSINOPHILS 0.4 %; HEMATOCRIT 33.8 % (42.0-52.0); HEMOGLOBIN 11.3 gm/dL (14.0-18.0); LYMPHOCYTES 5.1 %; MCHC 33.5 g/dL (28.0-37.0); MCV 101.5 fL (80.0-100.0); MONOCYTES 8.5 %; MPV 9.7 fl. (7.2-11.1); NUCLEATED RBCS 0 /100WBC; PLATELET COUNT* 62 thou/uL (150-400); POLYS 85.6 %; RBC 3.33 mil/uL (4.50-6.00); RDW-CV 15.5 % (10.5-14.5); WBC 8.3 thou/uL (4.0-11.0)
[2021-06-25 08:46] LABS: ALBUMIN 1.9 g/dL (3.4-5.0); CALCIUM 8.1 mg/dL (8.5-10.1); CREATININE 3.9 mg/dL (0.6-1.3); POTASSIUM 4.4 mmol/L (3.5-5.1); TOTAL BILIRUBIN 6.3 mg/dL (<0.1-1.0); TOTAL PROTEIN 6.1 g/dL (6.4-8.2)
[2021-06-25 09:13] LABS: INR 1.5; PROTIME 14.7 Seconds (9.20-11.50)
[2021-06-25 10:00] VITALS: BP 99/75
--- NOTE | 2021-06-25 10:01 | EKG ---
[place] [address] ELECTROCARDIOGRAM REPORT Name: AJ MARTINS Room: [address]R.#: [id number] Admission: 06/24/21 Attend Phys: Rob Farrell Discharge: Date of : 80 Date of Service: 06/24/211741 Report #: [id number] THIS REPORT FOR: //name// [facility] ED Test Date: 2021-06-24 Test Time: 17:42:48 Pat Name: AJ MARTINS Department: Room: [facility] Gender: M Regional Marketing Manager: JIM : 1980 Requested By: Mike Carbone Order Number: [id number] MD: Tacho Rubio Measurements Intervals [place] Rate: 108 P: 67 MD: 134 QRS: -8 QRSD: 85 T: 75 QT: 327 QTc: 439 Interpretive Statements Sinus tachycardia Low voltage, precordial leads Nonspecific T abnormalities, lateral leads Baseline wander in lead(s) I Compared to ECG 06/05/2021 17:28:51 Low QRS voltage now present Sinus rate has increased Ventricular premature complex(es) no longer present Electronically Signed On 06-25-2021 10:00:47 LINE LOCATOR by Tacho Rubio [email or web address] <ELECTRONICALLY SIGNED> By: Tacho Rubio MD, [facility] 06/25/21 1000 41 41 Tacho Rubio MD, [facility] /EPI
[2021-06-25 12:00] VITALS: BP 110/54
[2021-06-25 13:39] VITALS: BP 110/54
[2021-06-25 15:10] VITALS: BP 110/54
[2021-06-26] VITALS: BP 114/68
[2021-06-26 04:00] VITALS: BP 107/68
[2021-06-26 05:24] LABS: CALCIUM 7.9 mg/dL (8.5-10.1); CREATININE 3.4 mg/dL (0.6-1.3); POTASSIUM 3.8 mmol/L (3.5-5.1)
[2021-06-26 06:27] LABS: ABSOLUTE EOSINOPHILS 0.1 thou/uL (0.0-0.7); ABSOLUTE LYMPHOCYTES 0.4 thou/uL (0.8-5.3); ABSOLUTE MONOCYTES 0.6 thou/uL (0.0-1.2); ABSOLUTE NEUTROPHILS 5.9 thou/uL (1.6-8.1); BASOPHILS 0.4 %; EOSINOPHILS 1.3 %; HEMATOCRIT 28.4 % (42.0-52.0); HEMOGLOBIN 9.8 gm/dL (14.0-18.0); LYMPHOCYTES 5.4 %; MCH 34.5 pg (26.0-34.0); MCHC 34.4 g/dL (28.0-37.0); MCV 100.5 fL (80.0-100.0); MONOCYTES 8.1 %; MPV 10.3 fl. (7.2-11.1); NUCLEATED RBCS 0 /100WBC; PLATELET COUNT* 60 thou/uL (150-400); POLYS 84.8 %; RBC 2.83 mil/uL (4.50-6.00); RDW-CV 15.8 % (10.5-14.5)
[2021-06-26 08:00] VITALS: BP 116/65
[2021-06-26 12:00] VITALS: BP 114/69
[2021-06-26 12:41] LABS: ABSOLUTE BASOPHILS 0.1 thou/uL (0.0-0.2); ABSOLUTE EOSINOPHILS 0.1 thou/uL (0.0-0.7); ABSOLUTE LYMPHOCYTES 0.5 thou/uL (0.8-5.3); ABSOLUTE MONOCYTES 0.7 thou/uL (0.0-1.2); ABSOLUTE NEUTROPHILS 5.6 thou/uL (1.6-8.1); BASOPHILS 0.9 %; EOSINOPHILS 1.4 %; HEMATOCRIT 26.8 % (42.0-52.0); HEMOGLOBIN 9.2 gm/dL (14.0-18.0); LYMPHOCYTES 7.4 %; MCH 34.7 pg (26.0-34.0); MCHC 34.2 g/dL (28.0-37.0); MCV 101.4 fL (80.0-100.0); MONOCYTES 10.2 %; NUCLEATED RBCS 0 /100WBC; PLATELET COUNT* 60 thou/uL (150-400); POLYS 80.1 %; RBC 2.65 mil/uL (4.50-6.00); RDW-CV 15.6 % (10.5-14.5)
[2021-06-26 16:37] VITALS: BP 122/76
[2021-06-26 20:30] VITALS: BP 108/76
[2021-06-27] VITALS: BP 99/72
[2021-06-27 04:00] VITALS: BP 100/62
[2021-06-27 04:11] LABS: HEMATOCRIT 25.9 % (42.0-52.0); HEMOGLOBIN 8.9 gm/dL (14.0-18.0); MCH 34.7 pg (26.0-34.0); MCHC 34.4 g/dL (28.0-37.0); MCV 100.7 fL (80.0-100.0); RBC 2.58 mil/uL (4.50-6.00); RDW-CV 15.3 % (10.5-14.5)
[2021-06-27 04:34] LABS: ALBUMIN 2.1 g/dL (3.4-5.0); CALCIUM 7.7 mg/dL (8.5-10.1); CREATININE 3.4 mg/dL (0.6-1.3); MAGNESIUM 1.5 mg/dL (1.8-2.4); TOTAL BILIRUBIN 5.1 mg/dL (<0.1-1.0); TOTAL PROTEIN 5.6 g/dL (6.4-8.2)
[2021-06-27 08:00] VITALS: BP 112/54
[2021-06-27 12:00] VITALS: BP 104/77
[2021-06-27 16:00] VITALS: BP 116/75
[2021-06-27 20:30] VITALS: BP 120/84
[2021-06-28 00:20] VITALS: BP 110/66
[2021-06-28 04:14] LABS: HEMATOCRIT 28.1 % (42.0-52.0); HEMOGLOBIN 9.6 gm/dL (14.0-18.0); MCH 34.6 pg (26.0-34.0); MCHC 34.2 g/dL (28.0-37.0); MCV 101.2 fL (80.0-100.0); MPV 10.8 fl. (7.2-11.1); RBC 2.77 mil/uL (4.50-6.00); RDW-CV 15.6 % (10.5-14.5); WBC 6.2 thou/uL (4.0-11.0)
[2021-06-28 04:31] LABS: ALBUMIN 2.3 g/dL (3.4-5.0); CALCIUM 7.9 mg/dL (8.5-10.1); CREATININE 3.4 mg/dL (0.6-1.3); MAGNESIUM 1.3 mg/dL (1.8-2.4); POTASSIUM 3.8 mmol/L (3.5-5.1); TOTAL BILIRUBIN 5.3 mg/dL (<0.1-1.0); TOTAL PROTEIN 5.9 g/dL (6.4-8.2)
[2021-06-28 08:00] VITALS: BP 120/79
[2021-06-28 12:00] VITALS: BP 119/79
[2021-06-28 16:00] VITALS: BP 104/77
[2021-06-28 20:34] VITALS: BP 120/68
[2021-06-29 00:01] VITALS: BP 116/71
[2021-06-29 03:07] VITALS: BP 112/69
[2021-06-29 05:24] LABS: HEMATOCRIT 26.7 % (42.0-52.0); HEMOGLOBIN 9.3 gm/dL (14.0-18.0); MCH 34.6 pg (26.0-34.0); MCHC 34.8 g/dL (28.0-37.0); MCV 99.3 fL (80.0-100.0); RBC 2.69 mil/uL (4.50-6.00); RDW-CV 15.3 % (10.5-14.5); WBC 5.7 thou/uL (4.0-11.0)
[2021-06-29 05:59] LABS: ALBUMIN 2.3 g/dL (3.4-5.0); CALCIUM 7.7 mg/dL (8.5-10.1); CREATININE 3.5 mg/dL (0.6-1.3); MAGNESIUM 1.5 mg/dL (1.8-2.4); POTASSIUM 3.8 mmol/L (3.5-5.1); TOTAL BILIRUBIN 4.5 mg/dL (<0.1-1.0); TOTAL PROTEIN 5.5 g/dL (6.4-8.2)
[2021-06-29 08:00] VITALS: BP 118/72
[2021-06-29 11:45] VITALS: BP 113/65
[2021-06-29 14:12] LABS: BF RBC <1000 /mm3; TOTAL CELL COUNT 86 /mm3
[2021-06-29 14:15] LABS: CLARITY CLEAR; TOTAL VOLUME 7050 ml
[2021-06-29 15:02] LABS: BF LYMPHOCYTES 70 %; BF MONOCYTES 2 %; BF POLYS 28 %; BF TISSUE 23 /100 WBC
[2021-06-29 15:04] LABS: SOURCE PLEURAL FLUID
[2021-06-29 16:25] VITALS: BP 120/68
[2021-06-29 20:14] VITALS: BP 119/79
[2021-06-30] VITALS: BP 96/64
[2021-06-30 04:00] VITALS: BP 118/76
[2021-06-30 04:34] LABS: HEMATOCRIT 29.2 % (42.0-52.0); HEMOGLOBIN 10.1 gm/dL (14.0-18.0); MCH 34.6 pg (26.0-34.0); MCHC 34.8 g/dL (28.0-37.0); MCV 99.6 fL (80.0-100.0); MPV 10.3 fl. (7.2-11.1); RBC 2.93 mil/uL (4.50-6.00); WBC 7.2 thou/uL (4.0-11.0)
[2021-06-30 05:30] LABS: URINE BLOOD NEGATIVE (Negative); URINE CLARITY CLEAR; URINE COLOR DARK YELLOW; URINE GLUCOSE-RANDOM NEGATIVE (Negative); URINE KETONES NEGATIVE (Negative); URINE LEUKOCYTES NEGATIVE (Negative); URINE NITRITE NEGATIVE (Negative); URINE PROTEIN NEGATIVE (Negative); URINE SPECIFIC GRAVITY <= 1.005 (1.005-1.030)
[2021-06-30 05:34] LABS: ICTOTEST (BILI CONFIRMATORY) Positive (Negative); URINE BILIRUBIN 1+ (Negative)
[2021-06-30 05:51] LABS: ALBUMIN 2.3 g/dL (3.4-5.0); CALCIUM 7.7 mg/dL (8.5-10.1); CREATININE 3.6 mg/dL (0.6-1.3); MAGNESIUM 1.5 mg/dL (1.8-2.4); POTASSIUM 4.1 mmol/L (3.5-5.1); TOTAL PROTEIN 5.8 g/dL (6.4-8.2)
[2021-06-30 08:00] VITALS: BP 112/82
[2021-06-30 11:54] VITALS: BP 98/54
[2021-06-30 12:05] LABS: INR 1.7; PROTIME 16.7 Seconds (9.20-11.50)
[2021-06-30 16:06] VITALS: BP 106/59
[2021-06-30 20:00] VITALS: BP 110/72
[2021-07-01] VITALS: BP 111/64
[2021-07-01 04:00] VITALS: BP 129/71
[2021-07-01 04:50] LABS: ALBUMIN 2.3 g/dL (3.4-5.0); CALCIUM 7.9 mg/dL (8.5-10.1); CREATININE 3.6 mg/dL (0.6-1.3); MAGNESIUM 1.5 mg/dL (1.8-2.4); POTASSIUM 3.9 mmol/L (3.5-5.1); TOTAL PROTEIN 6.1 g/dL (6.4-8.2)
[2021-07-01 05:03] LABS: HEMATOCRIT 30.2 % (42.0-52.0); HEMOGLOBIN 10.2 gm/dL (14.0-18.0); MCHC 33.8 g/dL (28.0-37.0); MCV 100.5 fL (80.0-100.0); MPV 10.6 fl. (7.2-11.1); RBC 3.01 mil/uL (4.50-6.00); RDW-CV 15.3 % (10.5-14.5); WBC 8.2 thou/uL (4.0-11.0)
[2021-07-01 08:00] VITALS: BP 97/70
--- NOTE | 2021-07-01 08:54 | CON ---
[address] [address] CONSULTATION Name: AJ MARTINS Room: [address] IN M.R.#: [id number] Admission: 06/24/21 Attend Phys: Trey Heredia Discharge: Date of : 80 Report #: [id number] THIS REPORT FOR: cc: [facility] physician unknown [facility] physician unknown Nohemi Martínez MD ~ DATE OF CONSULTATION: 06/26/2021 CONSULTING PHYSICIAN: Michael Rodriguez MD REASON FOR NEPHROLOGY CONSULTATION: Acute kidney injury. REASON FOR ADMISSION: Abdominal distention, abdominal pain. HISTORY OF PRESENT ILLNESS: This is a 40-year-old male who has a history of HIV, on HAART therapy, advanced alcoholic liver cirrhosis, has not had alcohol since last six weeks according to the patient, recurrent ascites, came in with abdominal distention. He was just recently discharged from the hospital on 06/12. At that time also, he was admitted for ascites and acute kidney injury. His creatinine was 9.7 on 06/05, he received IV fluids and paracentesis and his creatinine came down to 5.1 at the time of discharge, 06/12. For the past few days, his abdomen was getting distended. He went to his primary care. He was given some diuretics. He took a couple doses of that, but he still did not get better and came over here and his creatinine was 4.0 here. He had 6.5 liters removed off of the belly yesterday and he was given albumin and IV fluids. His creatinine is down to 3.4 today. He is eating and drinking today. He is still complaining of some abdominal pain, but better. He is not using NSAIDs. His blood pressures are marginally low. U-tox was positive for THC. ALLERGIES: MORPHINE AND FENTANYL. PAST MEDICAL HISTORY: Which includes HIV, alcohol dependence and alcoholic liver cirrhosis, acute kidney injury, opioid abuse, anxiety, hiatal hernia, PTSD. REVIEW OF SYSTEMS: As mentioned in history of present illness, otherwise 10-point review of systems are negative. HOME MEDICATIONS: Include sodium bicarbonate, prednisolone, pantoprazole, clonazepam, hydrocodone, Symtuza and ondansetron. FAMILY HISTORY: Reviewed and noncontributory. SOCIAL HISTORY: He uses THC, alcohol, according to the patient, he has not used in the last 6 weeks, recreational drug use. U-tox positive [place] [address] CONSULTATION Name: AJ MARTINS Dora Room: [address]#: [id number] Admission: 06/24/21 Attend Phys: Trey Heredia Discharge: Date of : 80 Report #: [id number] every day. PHYSICAL EXAMINATION: VITAL SIGNS: Blood pressure is 107/68, temperature was 36.8, pulse rate was 115, respiratory rate was 16, pulse ox was 99%. He was on room air. GENERAL: He is awake and alert and oriented x 3, looks jaundiced. HEAD AND EYES: Atraumatic, normocephalic. Conjunctivae and scleral icterus. Mucous membranes are moist. NECK: No JVD. CHEST: Bilaterally decreased breath sounds. No crackles. CARDIOVASCULAR: S1, S2 normal. No murmurs. ABDOMEN: Does have some moderate distention. It is otherwise soft. Bowel sounds are decreased. LOWER EXTREMITIES: There is 3+ lower extremity edema. LABORATORY DATA: Creatinine is 3.4, BUN is 79, sodium is 133. His albumin is 1.9. Hemoglobin is 9.8, platelet count was 60,000. Other labs are reviewed. IMAGING DATA: Abdominal pelvic CT scan was reviewed. ASSESSMENT: 1. Acute kidney injury in the setting of advanced alcoholic liver cirrhosis, came in with large ascites, acute kidney injury in the setting of increased intra-abdominal pressure, hepatorenal syndrome cannot be ruled out. Creatinine at baseline used to be around 0.7 in March of last year, but in May, he came in with a creatinine of 9.7, which then stabilized around 5.1 on 06/12, and at this time, he came in with a creatinine of 4.0. Creatinine has improved with paracentesis and fluids. He has a massive lower extremity edema in the setting of hypoalbuminemia. There is no hydronephrosis. Urinalysis looks good, except for bilirubin. 2. Massive ascites in the setting of advanced alcoholic liver cirrhosis, status post paracentesis 06/25/2021, 6.5 liters removed. 3. Human immunodeficiency virus, on HAART treatment. 4. History of substance abuse, noncompliance. 5. Hypoalbuminemia causing massive lower extremity edema and ascites. 6. Severe protein calorie malnutrition. 7. Pancytopenia in the setting of cirrhosis and hypersplenism. 8. Hyponatremia in the setting of cirrhosis and acute kidney injury. PLAN: 1. Paracentesis was done yesterday, 6.5 liters removed. Will benefit from weekly paracentesis if that can be arranged by GI. 2. He would like to follow up with GI as outpatient. 3. If kidney function worsens, would be a very poor candidate for dialysis [address] [place] [address] CONSULTATION Name: AJ MARTINS Room: [address] IN .R.#: [id number] Admission: 06/24/21 Attend Phys: Trey Heredia Discharge: Date of : 80 Report #: [id number] because at this point, he is likely not a candidate for liver transplant. 4. Overall, prognosis is very poor, but since he has massive edema, I will go ahead and stop normal saline and initiate diuretics, Lasix 40 mg a day and spironolactone 25 mg a day and check labs in the morning. 5. Try to avoid IV contrast, hypotension and nephrotoxic agents. 6. Check morning labs and will follow with you. Discussed with the patient and nurse. <ELECTRONICALLY SIGNED> By: Nohemi Martínez MD 07/01/21 [phone] [id number] Martínez MD /nt
[2021-07-01 12:00] VITALS: BP 146/78
[2021-07-01 17:23] VITALS: BP 144/77
[2021-07-01 20:00] VITALS: BP 132/70
[2021-07-02] VITALS: BP 104/64
[2021-07-02 04:00] VITALS: BP 110/66
[2021-07-02 06:08] LABS: HEMATOCRIT 26.5 % (42.0-52.0); HEMOGLOBIN 8.9 gm/dL (14.0-18.0); MCH 33.5 pg (26.0-34.0); MCHC 33.7 g/dL (28.0-37.0); MCV 99.3 fL (80.0-100.0); MPV 10.4 fl. (7.2-11.1); RBC 2.66 mil/uL (4.50-6.00); RDW-CV 15.2 % (10.5-14.5); WBC 6.3 thou/uL (4.0-11.0)
[2021-07-02 06:55] LABS: ALBUMIN 2.1 g/dL (3.4-5.0); CALCIUM 7.8 mg/dL (8.5-10.1); CREATININE 3.7 mg/dL (0.6-1.3); MAGNESIUM 1.4 mg/dL (1.8-2.4)
[2021-07-02 07:15] LABS: TOTAL BILIRUBIN 4.7 mg/dL (<0.1-1.0); TOTAL PROTEIN 5.6 g/dL (6.4-8.2)
[2021-07-02 08:00] VITALS: BP 120/72
[2021-07-02] MEDS ORDERED: SYMTUZA 800-151 EACH PO (10:44)
[2021-07-02] MEDS ORDERED: OXYCODONE HCL 55 MG PO (10:44)
[2021-07-02] MEDS ORDERED: ONDANSETRON ODT4 MG PO (10:44)
[2021-07-02] MEDS ORDERED: PROTONIX40 M2 PO (10:44)
[2021-07-02] MEDS ORDERED: ANTACID650 MG PO (10:44)
[2021-07-02 12:28] VITALS: BP 142/79
--- NOTE | 2021-07-02 15:07 | PATH ---
[address] [address] PATHOLOGY RPT PROCEDURE Name: MALCOM MARTINS Room: [address] IN .R.#: [id number] Admission: 06/24/21 Date of : 80 Discharge: Report #: [id number] Path Case #: [id number] [facility] Accession Number: [id number] . 01 Material submitted: . duodenum - DUODENUM BIOPSY . 01 Clinical history: . EGD IN OR . 02 Diagnosis: Duodenum: - Moderate nonspecific active duodenitis with prominent fundic gland metaplasia, negative for Helicobacter pylori organisms, granulomas, viral inclusions and dysplasia. (ROBERT:meggan; 07/01/2021) . Special stain: H. pylori immuno MBR 07/01/2021 1224 Local . 02 Electronically signed: . Osman Carbajal MD, Pathologist NPI- [id number] . 01 Gross description: . The specimen is received in formalin, labeled "Jhonny Malcom, duodenum". Received is a single segment of pale lancaster tissue measuring 0.4 cm in maximum dimensions. The specimen is entirely submitted in cassette A1. ([facility]; 06/28/2021) NRI/NRI 07/01/2021 1223 Local . 02 Pathologist provided ICD-10: K29.80 . 02 CPT . 159175, [id number] Specimen Comment: A courtesy copy of this report has been sent to [phone] Specimen Comment: [id number] Specimen Comment: Report sent to / DR PANDEY Specimen Comment: A duplicate report has been generated due to demographic updates. Performed at: [address], [place] [id number] MD Khanh Madera MD Phone: [phone] Performed at: [address] [address] PATHOLOGY RPT PROCEDURE Name: MALCOM MARTINS Room: [address] IN [facility]#: [id number] Admission: 06/24/21 Date of : 80 Discharge: Report #: [id number] Path Case #: [id number] [address] [place], [place] [id number] MD Osman Carbajal MD Phone: [phone]
[2021-07-02 15:37] VITALS: BP 142/79
== END 2021-07-02 16:20 | disposition home or self-care (01) | DRG 432 ==
LOC: M.ERS 16:45 → M.TBA-ER 19:31 → M.2W 19:31 → M.TBA-ER 19:31 → M.2W 06-25 13:55
PROVIDERS: Family Medicine; Internal Medicine; Internal Medicine Gastroenterology; Nurse Practitioner Family; Physician Assistant; ADMIT Internal Medicine; ATTEND Internal Medicine
PROC: 0W9G3ZZ Drainage of Peritoneal Cavity, Percutaneous Approach (ICD-10-PCS; principal; 2021-06-25)
PROC: 0DB98ZX Excision of Duodenum, Via Natural or Artificial Opening Endoscopic, Diagnostic (ICD-10-PCS; 2021-06-27)
PROC: 0W9G3ZZ Drainage of Peritoneal Cavity, Percutaneous Approach (ICD-10-PCS; 2021-06-28)
DX: K70.31 Alcoholic cirrhosis of liver with ascites (principal); E43 Unspecified severe protein-calorie malnutrition; N17.9 Acute kidney failure, unspecified; E87.1 Hypo-osmolality and hyponatremia; D61.818 Other pancytopenia; K76.6 Portal hypertension; F41.9 Anxiety disorder, unspecified; K72.10 Chronic hepatic failure without coma; E88.09 Other disorders of plasma-protein metabolism, not elsewhere classified; D73.1 Hypersplenism; F17.210 Nicotine dependence, cigarettes, uncomplicated; N18.9 Chronic kidney disease, unspecified; F10.10 Alcohol abuse, uncomplicated; K21.00 Gastro-esophageal reflux disease with esophagitis, without bleeding; K44.9 Diaphragmatic hernia without obstruction or gangrene; K31.89 Other diseases of stomach and duodenum; K29.80 Duodenitis without bleeding; Z88.6 Allergy status to analgesic agent; Z88.8 Allergy status to other drugs, medicaments and biological substances; Z68.26 Body mass index [BMI] 26.0-26.9, adult